=== PATIENT | male | born 1965 | race Two or more races ===

== ENCOUNTER → 2017-02-26 | Outpatient (REF) | payer OTHER ==
[2017-02-26 13:27] LABS: BASO # 0.1 10^3/uL (0.0-0.2); BASO % 1.2 % (0.0-1.0); EOS # 0.1 10^3/uL (0.0-0.50); EOS % 1.9 % (0.0-3.0); IMMATURE GRANULOCYTE % 1.2 % (0-0); LYMPH # 1.8 10^3/uL (1.5-4.5); LYMPH % 24.4 % (24.0-44.0); MEAN CORPUSCULAR HEMOGLOBIN 33.4 pg (27.0-33.0); MEAN CORPUSCULAR HGB CONC 34.1 g/dl (32.0-36.5); MONO # 1.1 10^3/uL (0.0-0.8); MONO % 15.2 % (0.0-5.0); NEUTROPHILS # 4.2 10^3/uL (1.8-7.7); NEUTROPHILS % 56.1 % (36.0-66.0); PLATELET COUNT, AUTOMATED 304 10^3/uL (150-450); RED CELL DISTRIBUTION WIDTH 11.9 % (11.5-14.5); WHITE BLOOD COUNT 7.5 10^3/uL (4.0-10.0)
[2017-02-26 14:01] LABS: ALBUMIN/GLOBULIN RATIO 1.03 (1.00-1.93); ALKALINE PHOSPHATASE 70 U/L (45-117); ALT/SGPT 106 U/L (12-78); ANION GAP 7 MEQ/L (8-16); AST/SGOT 59 U/L (7-37); BILIRUBIN,TOTAL 0.7 MG/DL (0.2-1.0); BLOOD UREA NITROGEN 11 MG/DL (7-18); CALCIUM LEVEL 8.7 MG/DL (8.5-10.1); CARBON DIOXIDE LEVEL 29 MEQ/L (21-32); CHLORIDE LEVEL 103 MEQ/L (98-107); CHOLESTEROL LEVEL 202 MG/DL (<200); CREATININE FOR GFR 0.74 MG/DL (0.70-1.30); GLOMERULAR FILTRATION RATE > 60.0 (>60); GLUCOSE, FASTING 134 MG/DL (70-105); POTASSIUM SERUM 4.1 MEQ/L (3.5-5.1); SODIUM LEVEL 139 MEQ/L (136-145); TOTAL PROTEIN 7.9 GM/DL (6.4-8.2); TRIGLYCERIDES LEVEL 117 MG/DL (<150)
== END ==
LOC: M SFHCADAM 11:05
PROVIDERS: ATTEND Family Medicine
DX: Z00.00 Encounter for general adult medical examination without abnormal findings (principal)

== ENCOUNTER → 2017-03-24 | Outpatient (REF) | payer OTHER ==
[2017-03-24 12:50] LABS: GLUCOSE, FASTING 150 MG/DL (70-105)
[2017-03-24 13:02] LABS: ESTIMATED AVERAGE GLUCOSE 131 MG/DL (60-110); HEMOGLOBIN A1c 6.2 %
== END ==
LOC: M SFHCADAM 11:25
DX: R73.01 Impaired fasting glucose (principal)

== ENCOUNTER → 2017-06-26 | Outpatient (REF) | payer OTHER ==
[2017-06-26 18:52] LABS: ESTIMATED AVERAGE GLUCOSE 126 MG/DL (60-110)
== END ==
LOC: M SFHCADAM 17:46
DX: E11.69 Type 2 diabetes mellitus with other specified complication (principal)
CPT/HCPCS: 83036

== ENCOUNTER → 2017-08-05 | Outpatient (REF) | payer OTHER ==
[2017-08-06 11:29] LABS: ANION GAP 10 MEQ/L (8-16); BLOOD UREA NITROGEN 14 MG/DL (7-18); CALCIUM LEVEL 9.1 MG/DL (8.5-10.1); CARBON DIOXIDE LEVEL 26 MEQ/L (21-32); CHLORIDE LEVEL 107 MEQ/L (98-107); GLOMERULAR FILTRATION RATE > 60.0 (>56); GLUCOSE, FASTING 135 MG/DL (70-100); POTASSIUM SERUM 3.8 MEQ/L (3.5-5.1); SODIUM LEVEL 143 MEQ/L (136-145)
== END ==
LOC: M LABDRWAD 15:00
DX: I10 Essential (primary) hypertension (principal)

== ENCOUNTER → 2017-08-19 | Outpatient (CLI) | payer OTHER | LOC: M RAD 14:01 | DX: N44.2 Benign cyst of testis (principal); N50.3 Cyst of epididymis; N44.8 Other noninflammatory disorders of the testis | CPT/HCPCS: 76870 ==

== ENCOUNTER 2017-09-17 07:40 | Day surgery (SDC) | payer OTHER ==
[2017-09-17] MEDS: NS 1,000 ML IV (08:00)
[2017-09-17] MEDS ORDERED: PROPOFOL 200 MG/20 ML VIAL As Ordered ×2 (08:28→08:29)
== END 2017-09-17 09:36 | disposition home or self-care (01) ==
LOC: M OPP 07:40
DX: Z12.11 Encounter for screening for malignant neoplasm of colon (principal); K57.30 Diverticulosis of large intestine without perforation or abscess without bleeding; I10 Essential (primary) hypertension; E78.5 Hyperlipidemia, unspecified; G47.30 Sleep apnea, unspecified; Z87.891 Personal history of nicotine dependence; Z88.1 Allergy status to other antibiotic agents; Z79.899 Other long term (current) drug therapy
CPT/HCPCS: G0121

== ENCOUNTER → 2017-09-25 | Outpatient (REF) | payer OTHER ==
[2017-09-25 12:32] LABS: CHOLESTEROL LEVEL 208 MG/DL (<200); HDL CHOLESTEROL 50 MG/DL (>40); LDL CHOLESTEROL 117.8 MG/DL (<100); NON-HDL-C 158 MG/DL; TRIGLYCERIDES LEVEL 201 MG/DL (<150)
[2017-09-25 12:38] LABS: ESTIMATED AVERAGE GLUCOSE 126 MG/DL (60-110)
== END ==
LOC: M LABDRWAD 11:58
DX: E11.69 Type 2 diabetes mellitus with other specified complication (principal)
CPT/HCPCS: 83036

== ENCOUNTER → 2018-03-12 | Outpatient (REF) | payer OTHER ==
[~2018-03-12] MED LIST: AMLO10TA5; FENO160T10; HYDR12CA; LOSA100T50; MULT1TAB10 PO; VITA100067 PO
[2018-03-12 20:05] LABS: HEMOGLOBIN A1c 6.7 %
== END ==
LOC: M SFHCADAM 15:33
PROVIDERS: ATTEND Family Medicine
DX: E11.69 Type 2 diabetes mellitus with other specified complication (principal)

== ENCOUNTER → 2018-05-12 | Outpatient (REF) | payer OTHER ==
[2018-05-12 21:21] LABS: ALBUMIN 4.4 GM/DL (3.2-5.2); ALT/SGPT 167 U/L (12-78); BLOOD UREA NITROGEN 15 MG/DL (7-18); CALCIUM LEVEL 8.8 MG/DL (8.5-10.1); CARBON DIOXIDE LEVEL 30 MEQ/L (21-32); CHLORIDE LEVEL 101 MEQ/L (98-107); CREATININE FOR GFR 0.98 MG/DL (0.70-1.30); GLOMERULAR FILTRATION RATE > 60.0 (>56); GLUCOSE, FASTING 107 MG/DL (70-100); SODIUM LEVEL 139 MEQ/L (136-145); TOTAL PROTEIN 8.2 GM/DL (6.4-8.2)
[2018-05-12 21:31] LABS: HEMOGLOBIN A1c 6.2 %
== END ==
LOC: M SFHCADAM 13:44
PROVIDERS: ATTEND Family Medicine
DX: I10 Essential (primary) hypertension (principal); E11.69 Type 2 diabetes mellitus with other specified complication

== ENCOUNTER → 2018-07-01 | Outpatient (CLI) | payer OTHER ==
--- NOTE | 2018-07-01 09:36 | REP ---
RIGHT UPPER QUADRANT ULTRASOUND: Real-time sonographic evaluation of the right upper quadrant performed. The gallbladder demonstrates no evidence of intraluminal sludge or calculi, wall thickening or pericholecystic fluid. There is no intrahepatic or extrahepatic biliary dilatation, common bile duct measuring 5 mm. The liver appears enlarged. There is diffuse increased echotexture suggesting diffuse fibrofatty infiltration. No definite liver or pancreatic mass is seen. The pancreas is not well seen due to overlying bowel gas. Right kidney demonstrates no hydronephrosis with normal size 13.5 cm in length. IMPRESSION: Diffuse fibrofatty infiltration of the liver which appears mildly enlarged. Electronically Signed by Sukh Burgos MD 07/01/2018 11:08 A
== END ==
LOC: M RAD 06:58
PROVIDERS: ATTEND Family Medicine
DX: R16.0 Hepatomegaly, not elsewhere classified (principal)

== ENCOUNTER → 2018-12-08 | Outpatient (CLI) | payer OTHER ==
--- NOTE | 2018-12-09 16:31 | SLEEPCENT ---
DATE OF PROCEDURE: 12/08/2018 ORDERED BY: Wellington Lamb PA-C Nocturnal polysomnography was performed for pressure re-titration on this patient with a historical diagnosis of obstructive sleep apnea syndrome, currently using continuous positive airway pressure (CPAP), who has comorbidities of hypertension and edema. For testing the patient was fit with a [employer] AirFit N20 nasal pillows device of large size, 5 cm of water pressure were applied to the circuit and the lights were extinguished. 7 hours and 20 minutes of data were reviewed. There were 179 minutes of sleep identified. Sleep latency was prolonged at 47 minutes. Rapid eye movement (REM) latency was further prolonged at 205 minutes. Sleep architecture was quite poor. The patient had prolonged periods of wake after sleep onset sleep. Overall sleep efficiency was only 41.1%. The electrocardiogram showed a sinus rhythm with an average heart rate of 64 beats per minute. Rate ranged 40-90 beats per minute. EEG showed fairly normal waveforms for awake and sleep. No focal events were identified. Though the patient slept poorly in the lab, there were no significant obstructive events on CPAP at a pressure of +15, one hypopneic event was identified late in the study. The patient was trialed on a bilevel positive airway pressure (BiPAP) device, inspiratory 18 over expiratory 14 on which he did achieve REM sleep in the supine posture. Some limb activity was noted in the EMG leads. There were two trains of 30 events, and the limb movement arousal index was 13.4. IMPRESSION: 1. Obstructive sleep apnea syndrome. 2. Possible periodic limb movement disorder (G47.61). Limb movement arousal index 13.4. RECOMMENDATIONS: The patient slept poorly in the lab but had few significant respiratory events on CPAP at 15 and continuing on CPAP at a pressure of 15 would seem prudent in the absence of symptoms. Should the patient experience persistence of symptoms, based on these results a change to a bilevel device inspiratory 18 over 14 could be considered.
== END ==
LOC: M SLEEP 19:32
PROVIDERS: ATTEND Physician Assistant
DX: G47.33 Obstructive sleep apnea (adult) (pediatric) (principal)